=== PATIENT | female | born 1965 | race Caucasian/White ===

== ENCOUNTER 2023-04-13 13:24 | Outpatient (AMB) | payer OTHER, SELFPAY ==
--- NOTE | 2023-04-13 13:44 | A.OFFVIS_ITS ---
Intake Vital Signs 04/13/23 13:45 Height 5 ft 1.5 in Weight 150 lb BMI 27.9 BP 128/70 Blood Pressure Location Rt brachial Position Sitting Pulse 74 Pulse Source Pulse Oximeter Pulse Oximetry (%) 97 Oxygen Delivery Method Room Air Intake Visit Reasons: Shortness of breath Biopsychologist Required: No Allergies morphine [MORPHINE] Allergy (Unknown, Unverified 04/13/23 13:49) HIVES HPI HPI Comments History of Present Illness Details The patient is here for pulmonary evaluation. The patient is a 57 year woman with a history of smoking who presents with further evaluation of cough and shortness of breath. The patient states she smoked for about 45 years. She just quit about a month ago. She finally had with smoking and she quit cold turkey. She was concerned because she has significant cough productive in nature. Typically in the morning. Consistent with a smoker's cough. Moderate severity. It has gotten better since she stopped smoking. She has also been participating in the lung cancer screening program. Her last CT scan was back in January 2023 at [facility]. We personally reviewed together. No significant emphysema appreciated although she does have chronic bronchitis. She also has significant coronary calcifications suggesting of atherosclerosis of the coronary arteries but also her aorta. She denies any chest pain or pressure sensation. Although will be reasonable to further evaluate and risk stratify based on her new lifestyle changes. The patient has not had pulmonary function studies. She did using inhaler in the past when she had a bout of bronchitis but she does not use 1 regularly. She has an avid walker. In the office we did go for a brief walking oximetry. With minimal activity the patient did have an increased heart rate to about 110 beats per minute and pulse ox at times did drop down to about 94%. [facility] Medical History (Updated 04/13/23 @ 21:29 by Osmani Yan MD) Coronary artery calcification seen on CAT scan Cough Dyspnea Pulmonary nodule Social History (Updated 04/13/23 @ 13:53 by LIYA Saleem) Patient Tobacco Use Status: Former Tobacco user Tobacco use type: Cigarette Years Smoked: 45 Years Review of Systems Const Denies fever(s) Eyes Denies change in vision ENT Reports nasal congestion Card Denies chest pain and Reports dyspnea on exertion Resp Reports cough, Reports dyspnea on exertion and Denies wheezing GI Reports no additional complaints Musc Reports no additional complaints Skin/Breast Denies rash Neuro Reports no additional complaints Wali/Lymph Reports lymphadenopathy Aller/Immun Denies wheezing Physical Exam Vital Signs: Last Vital Signs Pulse 74 04/13/23 13:45 BP 128/70 04/13/23 13:45 Pulse Ox 97 04/13/23 13:45 Oxygen Delivery Method Room Air 04/13/23 13:45 BMI result Body Mass Index 27.9 Const General: comfortable HEENT Head: Yes normocephalic Eyes General: appearance normal, both eyes and all related structures Neck Neck: Yes supple Chest Chest palpation & inspection: normal inspection of the chest Resp Effort & Inspection: normal respiratory effort Auscultation: clear to auscultation bilaterally and no wheezes Cardio Heart sounds: S1 normal heart sound present and S2 normal heart sound present GI Palpation (GI): Soft to palpation Skin General skin exam: no rashes or lesions noted Extrem General: Yes no clubbing, cyanosis or edema Assessment & Plan Assessment & Plan (1) Pulmonary nodule: Code(s): R91.1 - Solitary pulmonary nodule (2) Dyspnea: Comment: increased HR with activity Code(s): R06.00 - Dyspnea, unspecified Qualifiers: Dyspnea type: dyspnea on exertion Qualified Code(s): R06.09 - Other forms of dyspnea (3) Cough: Code(s): R05.9 - Cough, unspecified Qualifiers: Cough type: chronic Qualified Code(s): R05.3 - Chronic cough (4) Coronary artery calcification seen on CAT scan: Code(s): I25.10 - Atherosclerotic heart disease of [place] coronary artery without angina pectoris Plan PFTs LDCT No need for inhalers at this time would recommend EKG and or stress test with mod to severe coronary artery calcifications F/U 3 months Orders: Orders PFT pulmonary function test 3 Months R05.3 - Chronic cough Coding Level of Care Code New Pt Level 4 (49253) Diagnoses Pulmonary nodule R91.1 Dyspnea on exertion R06.09 Dyspnea type: dyspnea on exertion Chronic cough R05.3 Cough type: chronic Coronary artery calcification seen on CAT scan I25.10 Time Spent (min) 40
[2023-04-13 13:45] VITALS: BP 128/70; PULSE 74; O2SAT 97; BMI 27.9
== END 2023-04-13 14:21 | disposition home or self-care (01) ==
PROVIDERS: PCP Nurse Practitioner Family; Visit Provider Hospitalist
DX: R91.1 Solitary pulmonary nodule (principal); R06.09 Other forms of dyspnea; R05.3 Chronic cough; I25.10 Atherosclerotic heart disease of native coronary artery without angina pectoris
CPT/HCPCS: 99204

== ENCOUNTER → 2023-04-13 13:24 | Outpatient (BNVA) | payer OTHER, SELFPAY | PROVIDERS: PCP Nurse Practitioner Family; Visit Provider Hospitalist ==